=== PATIENT | male | born 1985 | race Caucasian/White ===

== ENCOUNTER 2016-12-01 12:14 | Emergency (ER) | payer MEDICAID ==
[~2016-12-01] VITALS: Ht 193 cm; Wt 81.6 kg
[2016-12-01 12:54] VITALS: BP_SYST 115
[2016-12-01] MEDS ORDERED: IPRATROPIUM/ALBUTEROL SULFATE 3 ML AMPUL.NEB INH ONE (14:30)
[2016-12-01] MEDS ORDERED: PREDNISONE 20 MG TABLET PO ONE (14:30)
[2016-12-01] MEDS ORDERED: ALBUTEROL SULFATE 0.083% 2.5 MG/3 ML VIAL.NEB INH ONE ×2 (14:45→15:00)
[2016-12-01 16:03] VITALS: BP_SYST 115
== END 2016-12-01 16:03 | disposition home or self-care (01) ==
LOC: SED 12:14
DX: J45.901 Unspecified asthma with (acute) exacerbation (principal); J30.2 Other seasonal allergic rhinitis; F17.210 Nicotine dependence, cigarettes, uncomplicated
CPT/HCPCS: 71010; 94640; 99285; J7512